=== PATIENT | male | born 1945 | race Two or more races ===

== ENCOUNTER 2024-01-17 12:00 | Inpatient (IN) | payer OTHER ==
[~2024-01-17] VITALS: Ht 167.6 cm; Wt 70.8 kg
[~2024-01-17 12:00] MED LIST: SYNTHROID
[2024-01-23] MEDS ORDERED: LIDOCAINE HCL 1%/EPINEPHRINE 20ML VIAL IJ ONE (14:15)
[2024-01-23] MEDS ORDERED: BUPIVACAINE HCL 30 ML VIAL IJ ONE (14:15)
[2024-01-23] MEDS ORDERED: CEFTRIAXONE SODIUM 2,000 MG VIAL IV ONE (14:15)
[2024-01-23] MEDS ORDERED: METRONIDAZOLE/SODIUM CHLORIDE 500 MG/100 ML PIGGYBACK IV ONE (14:15)
[2024-01-23] MEDS ORDERED: ATORVASTATIN CA20 MG (14:28)
[2024-01-23] MEDS ORDERED: LEVOTHYROXINE50 MCG (14:28)
[2024-01-23] MEDS ORDERED: GABAPENTIN100 M2 (14:28)
[2024-01-23] MEDS ORDERED: METOPROLOL SUCC50 MG (14:29)
[2024-01-23] MEDS ORDERED: LISINOPRIL20 MG (14:29)
[2024-01-23] MEDS ORDERED: hydrALAZINE HCL 20 MG VIAL IV ONE (14:30)
[2024-01-23] MEDS ORDERED: SUGAMMADEX SODIUM 200 MG/2 ML VIAL IV ONE (15:45)
[2024-01-23] MEDS ORDERED: ONDANSETRON HCL 2 MG/ML VIAL IV PRN (16:15)
[2024-01-23] MEDS ORDERED: RINGERS SOLUTION,LACTATED 1,000 ML IV SCH (16:15)
[2024-01-23] MEDS ORDERED: OxyCODONE HCL 5 MG TABLET (ROXICODONE) PO PRN (16:15)
[2024-01-23] MEDS ORDERED: DEXTROSE 50 % IN WATER 0.5 G/ML DISP.SYRIN IV PRN (16:15)
[2024-01-23] MEDS ORDERED: MORPHINE SULFATE 4 MG/ML CARTRIDGE IV PRN (16:15)
[2024-01-23] MEDS ORDERED: MORPHINE SULFATE 4 MG/ML VIAL IV ONE ×2 (16:20→16:50)
[2024-01-23] MEDS ORDERED: GABAPENTIN 300 MG CAPSULE PO SCH (17:00)
[2024-01-23] MEDS ORDERED: SIMETHICONE 125 MG CAPSULE PO SCH (17:00)
[2024-01-23] MEDS ORDERED: METOCLOPRAMIDE HCL 5 MG/ML VIAL IV SCH (17:00)
[2024-01-23] MEDS ORDERED: POLYETHYLENE GLYCOL 3350 17 GM BLIST.PACK PO SCH (17:00)
[2024-01-23] MEDS ORDERED: HYOSCYAMINE SULFATE 0.125 MG TAB.SUBL SL SCH (17:00)
[2024-01-23] MEDS ORDERED: ACETAMINOPHEN 500 MG GEL..CAP PO SCH (20:00)
[2024-01-23] MEDS ORDERED: FAMOTIDINE/PF 20 MG/2 ML VIAL IV PUSH SCH (21:00)
[2024-01-23] MEDS ORDERED: CELECOXIB 200 MG CAPSULE PO SCH (21:00)
[2024-01-24 00:15] VITALS: BP 132/82; O2SAT 96
[2024-01-24 06:35] LABS: HEMATOCRIT 38.5 % (39.0-48.0); HEMOGLOBIN 13.6 g/dL (13-16.00); MEAN CELL VOLUME 89.9 fL (80.0-100.00); MEAN CORPUSCULAR HEMOGLOBIN 31.6 pg (27.00-32.0); MEAN CORPUSCULAR HGB CONC 35.2 g/dl (32.0-36.0); PLATELET COUNT 180 K/uL (150-450); RED BLOOD COUNT 4.28 M/uL (4.00-6.00)
[2024-01-24 07:19] LABS: ALBUMIN 2.9 gm/dL (3.4-5.0); CALCIUM 8.3 mg/dL (8.5-10.1); CREATININE SERUM 0.78 mg/dL (0.70-1.30); GFR 95.77; MAGNESIUM 1.9 mg/dL (1.8-2.4); PHOSPHOROUS 3.2 mg/dL (2.5-4.9); POTASSIUM 4.1 mEq/L (3.5-5.1)
[2024-01-24] MEDS ORDERED: LACTOBACILLUS ACIDOPHILUS 1 CAP CAP PO SCH (09:00)
[2024-01-24 09:58] VITALS: BP 164/74; O2SAT 98
[2024-01-24 16:00] VITALS: BP 190/87; O2SAT 96
[2024-01-24] MEDS ORDERED: ENOXAPARIN SODIUM 40 MG/0.4 ML SYRINGE SUBCUTANEO SCH (17:00)
[2024-01-25 00:30] VITALS: BP 176/80; O2SAT 97
[2024-01-25 03:35] VITALS: BP 154/75; O2SAT 97
[2024-01-25] MEDS ORDERED: ENOXAPARIN SODIUM 40 MG/0.4 ML SYRINGE SUBCUTANEO SCH (09:00)
[2024-01-25 10:38] VITALS: BP 140/84; O2SAT 95
[2024-01-25 16:00] VITALS: BP 120/72; O2SAT 100
[2024-01-25] MEDS ORDERED: INTESTINEX680 M1 PO (19:41)
[2024-01-25] MEDS ORDERED: CELECOXIB200 MG PO (19:42)
[2024-01-25] MEDS ORDERED: LEVSIN/SL0.125 MG SL (19:42)
[2024-01-26] VITALS: BP 155/68; O2SAT 97
[2024-01-26] MEDS ORDERED: LEVOTHYROXINE SODIUM 50 MCG TABLET PO SCH (06:00)
[2024-01-26 08:00] VITALS: BP 160/80; O2SAT 98
[2024-01-26] MEDS ORDERED: LISINOPRIL 20 MG TABLET PO SCH (09:00)
[2024-01-26] MEDS ORDERED: METOPROLOL SUCCINATE 50 MG TAB.SR.24H PO SCH (09:00)
== END 2024-01-26 11:23 | disposition home or self-care (01) | DRG 331 ==
LOC: SURH 01-23 05:32 → O/R 01-23 05:32 → SURH 01-23 12:00
PROVIDERS: ADMIT Surgery; ATTEND Surgery
PROC: 07BB4ZZ Excision of Mesenteric Lymphatic, Percutaneous Endoscopic Approach (ICD-10-PCS; 2024-01-23)
PROC: 0DJD8ZZ Inspection of Lower Intestinal Tract, Via Natural or Artificial Opening Endoscopic (ICD-10-PCS; 2024-01-23)
PROC: 0DBP4ZZ Excision of Rectum, Percutaneous Endoscopic Approach (ICD-10-PCS; 2024-01-23)
PROC: 0DTN4ZZ Resection of Sigmoid Colon, Percutaneous Endoscopic Approach (ICD-10-PCS; principal; 2024-01-23 14:00)
DX: C18.7 Malignant neoplasm of sigmoid colon (principal); K57.30 Diverticulosis of large intestine without perforation or abscess without bleeding